=== PATIENT | female | born 1955 | race Caucasian/White ===

== ENCOUNTER 2023-06-05 13:06 | Outpatient (CLI) | payer MEDICARE | END 2023-06-05 13:07 | disposition home or self-care (01) | LOC: CSHMRI 13:06 | PROVIDERS: ATTEND Psychiatry & Neurology Neurology | DX: G31.84 Mild cognitive impairment of uncertain or unknown etiology (principal); R90.82 White matter disease, unspecified | CPT/HCPCS: 70551 ==